=== PATIENT | male | born 2005 | race African-American/Black ===

== ENCOUNTER 2025-04-04 15:36 | Emergency (ER) | payer MEDICAID ==
[~2025-04-04] VITALS: Ht 170.2 cm; Wt 59.0 kg
[2025-04-04 15:40] VITALS: O2SAT 100
[2025-04-04 16:35] LABS: HEMATOCRIT. 42.4 % (42.0-52.0); HEMOGLOBIN. 14.1 g/dL (14.0-18.0); MEAN PLATELET VOLUME 8.3 fl (7.4-10.4); NEUTROPHILS % 62.7 % (40.0-76.0); PLATELET 228 x1000/uL (130-400); RED BLOOD CELL COUNT 4.91 mill/uL (4.7-6.1); RED CELL DISTRIBUTION WIDTH 12.8 % (11.6-14.6)
[2025-04-04 16:36] LABS: BASOPHILS % 1.1 % (0.0-2.0); EOSINOPHILS % 1.9 % (0.0-5.0); LYMPHOCYTES % 29.2 % (20.0-50.0); MONOCYTES % 5.1 % (2.0-8.0)
[2025-04-04 16:42] LABS: *AMPHETAMINES SCREEN URINE NEGATIVE (NEGATIVE); *BARBITURATES SCREEN URINE NEGATIVE (NEGATIVE); *BENZODIAZEPINES SCREEN URINE NEGATIVE (NEGATIVE); *COCAINE SCREEN URINE NEGATIVE (NEGATIVE)
[2025-04-04 16:43] LABS: CANNABINOID URINE SCREEN PRESUMPTIVE POSITIVE (NEGATIVE); ECSTASY MDMA SCREEN URINE NEGATIVE (NEGATIVE); METHADONE URINE SCREEN NEGATIVE (NEGATIVE); OPIATES URINE SCREEN NEGATIVE (NEGATIVE); PHENCYCLIDINE URINE SCREEN NEGATIVE (NEGATIVE)
[2025-04-04 16:49] LABS: CREATININE 0.9 mg/dL (0.6-1.3)
[2025-04-04 16:50] LABS: UREA NITROGEN BLOOD 6 mg/dL (9-23)
[2025-04-04 16:51] LABS: ASPARTATE AMINOTRANSFERASE 18 IU/L (<34)
[2025-04-04 16:52] LABS: BILIRUBIN DIRECT 0.3 mg/dL (<=3.0); BILIRUBIN TOTAL 1.0 mg/dL (0.1-1.0); PROTEIN TOTAL 7.2 g/dL (6.0-8.3)
[2025-04-05 07:26] VITALS: BP 100/68; PULSE 60; RESP 18; TEMP 37.1; O2SAT 100
== END 2025-04-05 07:35 ==
LOC: ER 15:36
DX: R44.0 Auditory hallucinations (principal); R10.9 Unspecified abdominal pain; F12.10 Cannabis abuse, uncomplicated; Z72.0 Tobacco use; Z20.822 Contact with and (suspected) exposure to COVID-19; Z79.899 Other long term (current) drug therapy
CPT/HCPCS: 36415; 80048; 80076; 80305; 80307; 80320; 80329; 83735; 85025; 87426; 99285; G0480